=== PATIENT | female | born 1985 | race African-American/Black ===

== ENCOUNTER 2017-08-16 02:54 | Emergency (ER) | payer MEDICAID ==
[~2017-08-16] VITALS: Ht 177.8 cm; Wt 66.0 kg
[2017-08-16] MEDS ORDERED: DIPHENHYDRAMINE 50MG/ML VIAL IV STA (03:16)
[2017-08-16] MEDS ORDERED: MORPHINE SULFATE 4 MG/ML CPJ (NOT FOR IM USE) IV STA (03:16)
[2017-08-16] MEDS ORDERED: ETOMIDATE 2MG/ML 10ML VIAL IV ONE (04:30)
[2017-08-16 08:31] VITALS: BP 111/76
== END 2017-08-16 09:00 | disposition home or self-care (01) ==
LOC: ER 02:54
DX: S82.892A Other fracture of left lower leg, initial encounter for closed fracture (principal); X58.XXXA Exposure to other specified factors, initial encounter; Y93.89 Activity, other specified; Y92.89 Other specified places as the place of occurrence of the external cause; Y99.8 Other external cause status
CPT/HCPCS: 27762; 73610; 73620; 93005; 96374; 96375; 99284; J1200; J2270; J3490